=== PATIENT | male | born 1955 | race African-American/Black ===

== ENCOUNTER 2023-10-16 12:43 | Outpatient (CLI) | payer MEDICARE | END 2023-10-16 12:44 | disposition home or self-care (01) | LOC: RAD 12:43 | PROVIDERS: ATTEND Internal Medicine Critical Care Medicine | DX: R06.00 Dyspnea, unspecified (principal) | CPT/HCPCS: 71046 ==

== ENCOUNTER 2023-11-25 08:36 | Outpatient (CLI) | payer MEDICARE | END 2023-11-25 08:37 | disposition home or self-care (01) | LOC: RAD 08:36 | PROVIDERS: ATTEND Internal Medicine Critical Care Medicine | DX: R06.00 Dyspnea, unspecified (principal) | CPT/HCPCS: 71046 ==